=== PATIENT | female | born 1930 | race Caucasian/White ===

== ENCOUNTER 2016-12-11 09:19 | Emergency (ER) | payer MEDICARE ==
[~2016-12-11] VITALS: Ht 152.4 cm; Wt 40.4 kg
[~2016-12-11 09:19] MED LIST: ALEN70TA3 PO; ATOR10TA PO; BIMA2.5D EACHEYE
[2016-12-11] MEDS ORDERED: TRAMADOL HCL 50 MG TABLET ONE (09:51)
[2016-12-11] MEDS ORDERED: TRAMADOL HCL 50 MG TABLET PO ONE (10:00)
[2016-12-11 11:23] VITALS: BP 112/61
== END 2016-12-11 11:24 | disposition home or self-care (01) ==
LOC: ER 09:23
DX: S20.211A Contusion of right front wall of thorax, initial encounter (principal); M81.0 Age-related osteoporosis without current pathological fracture; Z88.0 Allergy status to penicillin; W01.0XXA Fall on same level from slipping, tripping and stumbling without subsequent striking against object, initial encounter; Y93.89 Activity, other specified; Y92.26 Movie house or cinema as the place of occurrence of the external cause; Y99.9 Unspecified external cause status
CPT/HCPCS: 71020; 99284; A4606; Z7610

== ENCOUNTER 2017-10-01 15:41 | Emergency (ER) | payer MEDICARE ==
[~2017-10-01] VITALS: Ht 152.4 cm; Wt 39.9 kg
[2017-10-01] MEDS ORDERED: IBUPROFEN 600 MG TABLET PO ONE (17:00)
[2017-10-01] MEDS ORDERED: IBUPROFEN 400 MG TABLET ONE (17:00)
[2017-10-01] MEDS ORDERED: IV NS 0.9% 1,000 ML BAG IV ONE (17:00)
[2017-10-01 17:05] LABS: BASOPHILS % (AUTO) 0.4 % (0.0-2.0); EOSINOPHILS % (AUTO) 0.6 % (0.0-6.0); HEMATOCRIT 32 % (33-45); HEMOGLOBIN 11.1 g/dL (11.5-14.8); LYMPHOCYTES # (AUTO) 0.6 /CMM (0.8-4.8); MEAN CORPUSCULAR HEMOGLOBIN 30 PG (26.0-33.0); MEAN CORPUSCULAR HGB CONC 35 g/dl (31.0-36.0); MEAN CORPUSCULAR VOLUME 88 fL (82-100); MONOCYTES # (AUTO) 0.2 /CMM (0.1-1.30); MONOCYTES % (AUTO) 4.1 % (2.0-12.0); NEUTROPHILS # (AUTO) 5.1 /CMM (1.8-8.9); NEUTROPHILS % (AUTO) 84.9 % (43.0-81.0); PLATELET COUNT (AUTO) 229 /CMM (150-450); RDW COEFFICIENT OF VARIATION 12.5 (11.5-15.0); RED BLOOD CELL COUNT(AUTO) 3.66 MIL/uL (4.0-5.2); WHITE BLOOD COUNT (AUTO) 5.9 K/uL (4.3-11.0)
[2017-10-01 17:12] LABS: CALCIUM, SERUM 8.5 mg/dL (8.5-10.1); CARBON DIOXIDE 27 mmol/L (21-32); CHLORIDE 100 mmol/L (98-107); CREATININE 0.8 mg/dL (0.6-1.3); GLUCOSE 125 mg/dL (74-106); POTASSIUM 3.8 mmol/L (3.5-5.1); SODIUM SERUM 133 mmol/L (136-145)
[2017-10-01 17:19] LABS: UREA NITROGEN, BLOOD 23 mg/dL (7-18)
[2017-10-01] MEDS ORDERED: OSELTAMIVIR PHOSPHATE 75 MG CAPSULE ONE (17:55)
[2017-10-01] MEDS ORDERED: OSELTAMIVIR PHOSPHATE 75 MG CAPSULE PO ONE (18:00)
[2017-10-01 18:05] VITALS: BP 108/64
== END 2017-10-01 18:06 | disposition home or self-care (01) ==
LOC: ER 15:47
DX: R09.81 Nasal congestion (principal); J11.1 Influenza due to unidentified influenza virus with other respiratory manifestations; E78.5 Hyperlipidemia, unspecified; M81.0 Age-related osteoporosis without current pathological fracture; H40.9 Unspecified glaucoma; Z88.0 Allergy status to penicillin
CPT/HCPCS: 36415; 71010; 80048; 85025; 87804 ×2; 96360; 99285; A4606; J7030; 87400; Z7610

== ENCOUNTER 2019-10-08 07:56 | Emergency (ER) | payer MEDICARE ==
[~2019-10-08] VITALS: Ht 152.4 cm; Wt 44.9 kg
[2019-10-08 08:26] LABS: APPEARANCE,URINE Clear (CLEAR); BILIRUBIN,URINE Negative (NEGATIVE); BLOOD, URINE Trace-intact Ery/uL (NEGATIVE); COLOR,URINE Yellow (YELLOW); KETONES,URINE Trace (NEGATIVE); LEUKOCYTE ESTERASE ,URINE Negative (NEGATIVE); NITRITE, URINE Negative (NEGATIVE); PROTEIN,URINE Negative (NEGATIVE); UGLUCOSE Negative (NEGATIVE); UROBILINOGEN,URINE 0.2 EU/dL (0.2)
[2019-10-08 08:34] LABS: BASOPHILS % (AUTO) 0.4 % (0.0-2.0); EOSINOPHILS % (AUTO) 1.3 % (0.0-6.0); HEMATOCRIT 35 % (33-45); HEMOGLOBIN 11.5 g/dL (11.5-14.8); LYMPHOCYTES # (AUTO) 0.9 /CMM (0.8-4.8); LYMPHOCYTES % (AUTO) 20.6 % (20.0-44.0); MEAN CORPUSCULAR HGB CONC 33 g/dl (31.0-36.0); MEAN CORPUSCULAR VOLUME 90 fL (82-100); MONOCYTES # (AUTO) 0.2 /CMM (0.1-1.30); MONOCYTES % (AUTO) 4.9 % (2.0-12.0); NEUTROPHILS % (AUTO) 72.8 % (43.0-81.0); PLATELET COUNT (AUTO) 310 /CMM (150-450); RED BLOOD CELL COUNT(AUTO) 3.86 MIL/uL (4.0-5.2); WHITE BLOOD COUNT (AUTO) 4.2 K/uL (4.3-11.0)
[2019-10-08 08:44] LABS: CREATININE 1.2 mg/dL (0.6-1.3); POTASSIUM 3.4 mmol/L (3.5-5.1)
[2019-10-08 08:50] LABS: ALBUMIN 3.6 g/dL (3.4-5.0); BILIRUBIN,DIRECT 0.1 mg/dL (0.0-0.2); BILIRUBIN,TOTAL 0.2 mg/dL (0.2-1.0); TOTAL PROTEIN, SERUM 6.7 g/dL (6.4-8.2)
[2019-10-08] MEDS ORDERED: KETOROLAC TROMETHAMINE INJ 30 MG/ML VIAL ONE (08:58)
[2019-10-08] MEDS ORDERED: KETOROLAC TROMETHAMINE INJ 30 MG/ML VIAL IV ONE (09:00)
--- NOTE | 2019-10-08 09:00 | NUR ---
updated by MD medicated as ordered
[2019-10-08 09:12] LABS: BACTERIA,URINE None seen /HPF (None Seen); SQUAMOUS EPITHELIAL CELL,UR Moderate /HPF (None Seen); URINE AMORPHOUS URATE Moderate /HPF (None Seen)
[2019-10-08 09:13] LABS: MUCUS,URINE Few /LPF (None Seen)
--- NOTE | 2019-10-08 09:27 | NUR ---
pt states "feel better-pain more tolerable. Dozing on/off
[2019-10-08 10:52] VITALS: BP 132/60
--- NOTE | 2019-10-08 10:54 | NUR ---
Pt states "After I got that medicine pain gone. Doctor said I passed it" Patient discharged to home in stable condition. Written and verbal after care instructions given. Patient verbalizes understanding of instruction.
== END 2019-10-08 10:54 | disposition home or self-care (01) ==
LOC: ER 07:56
DX: N13.2 Hydronephrosis with renal and ureteral calculous obstruction (principal); E78.5 Hyperlipidemia, unspecified; Z88.0 Allergy status to penicillin; Z88.7 Allergy status to serum and vaccine; Z79.899 Other long term (current) drug therapy
CPT/HCPCS: 36415; 74176; 80048; 80076; 81001; 85025; 87086; 96374; 99284; J1885; 81000-TC

== ENCOUNTER 2019-11-03 06:21 | Emergency (ER) | payer MEDICARE ==
[~2019-11-03] VITALS: Ht 154.9 cm; Wt 40.8 kg
[2019-11-03 06:21] VITALS: BP 133/72
--- NOTE | 2019-11-03 06:31 | NUR ---
BIBS. AAOX4. NO RESP DISTRSS NOTED. AMBULATORY. C/O R EYE PAIN. PT FEELS PRESSURE. PT REPORTS GTHAT SHE HAVE DX OF GLAUCOMA AND FEEL THAT HER PRESSURE IS HIGH THATS WHY HER EYE HURTS. AT BEDSIDE FOR EVAL. AWAITING ORDERS
[2019-11-03] MEDS ORDERED: FLUORESCEIN SODIUM OPHTH 1 EA STRIP ONE (06:35)
--- NOTE | 2019-11-03 07:30 | NUR ---
Patient discharged to home in stable condition. Written and verbal after care instructions given. Patient verbalizes understanding of instruction. Pt ambulatory with a steady gait
== END 2019-11-03 07:31 | disposition home or self-care (01) ==
LOC: ER 06:22
DX: S05.01XA Injury of conjunctiva and corneal abrasion without foreign body, right eye, initial encounter (principal); H40.9 Unspecified glaucoma; E78.5 Hyperlipidemia, unspecified; M81.0 Age-related osteoporosis without current pathological fracture; Z88.0 Allergy status to penicillin; Z79.899 Other long term (current) drug therapy; X58.XXXA Exposure to other specified factors, initial encounter; Y93.89 Activity, other specified; Y92.89 Other specified places as the place of occurrence of the external cause; Y99.8 Other external cause status